=== PATIENT | female | born 1995 | race Caucasian/White ===

== ENCOUNTER 2019-09-12 19:59 | Emergency (ER) | payer SELFPAY ==
[~2019-09-12] VITALS: Ht 170.2 cm; Wt 77.1 kg
[2019-09-12] MEDS ORDERED: ZOFRAN4 MG PO (21:27)
== END 2019-09-12 22:32 | disposition home or self-care (01) ==
LOC: ED 19:59
DX: K52.9 Noninfective gastroenteritis and colitis, unspecified (principal); F17.200 Nicotine dependence, unspecified, uncomplicated
CPT/HCPCS: 80053; 81001; 83735; 84703; 85025; 96361; 96374; 96375; 96376; 99284-25; J2405; J7030

== ENCOUNTER 2019-11-01 07:47 | Emergency (ER) | payer SELFPAY ==
[~2019-11-01] VITALS: Ht 180.3 cm; Wt 86.2 kg
[~2019-11-01 07:47] MED LIST: ZOFRAN4 MG PO
[2019-11-01] MEDS ORDERED: ACIPHEX20 MG PO (11:34)
[2019-11-01] MEDS ORDERED: ZOFRAN4 MG PO (11:34)
== END 2019-11-01 11:59 | disposition home or self-care (01) ==
LOC: ED 07:47
DX: R11.15 Cyclical vomiting syndrome unrelated to migraine (principal); F17.200 Nicotine dependence, unspecified, uncomplicated
CPT/HCPCS: 80053; 81001; 83690; 84703; 85025; 96361; 96374; 96375; 99284-25; J1200; J1790; J1885; J7030